=== PATIENT | male | born 1945 | race Caucasian/White ===

== ENCOUNTER → 2018-06-26 | Outpatient (CLI) | payer MEDICARE, BC ==
[2018-06-26 14:44] LABS: Alanine Aminotransfer (ALT/SGP 47 U/L (12-78); Albumin, Blood 3.5 g/dL (3.4-5.0); Alk Phos 71 U/L (50-136); Anion Gap 9 mmol/L (6-16); Aspartate Aminotrans (AST/SGOT 32 U/L (12-37); Bilirubin, Total 0.6 mg/dL (0.1-1.0); Blood Urea Nitrogen 22 mg/dL (8-24); Bun/Creatinine Ratio 20.4 (12.0-20.0); CO2, Blood 23 mmol/L (21-32); Calcium, Blood 8.2 mg/dL (8.5-10.1); Chloride, Blood 107 mmol/L (98-108); Creatinine, Blood 1.08 mg/dL (0.60-1.20); Globulin, Blood 3.6 g/dL (2.2-4.0); Glomerular Filtration Rate >60 (60-); Glucose, Blood 104 mg/dL (70-99); Potassium, Blood 4.1 mmol/L (3.5-5.5); Sodium, Blood 139 mmol/L (136-145); Total Protein, Blood 7.1 g/dL (6.4-8.2)
== END | disposition home or self-care (01) ==
LOC: LAB SHORT 13:55 → LAB 13:55
PROVIDERS: Internal Medicine Hematology & Oncology
DX: C43.59 Malignant melanoma of other part of trunk (principal)
CPT/HCPCS: 80053

== ENCOUNTER → 2018-07-05 | Outpatient (CLI) | payer MEDICARE, BC ==
[2018-07-05 18:28] LABS: Alanine Aminotransfer (ALT/SGP 31 U/L (12-78); Albumin, Blood 3.5 g/dL (3.4-5.0); Albumin/Globulin Ratio 1.1 (0.8-1.8); Alk Phos 66 U/L (50-136); Anion Gap 5 mmol/L (6-16); Aspartate Aminotrans (AST/SGOT 20 U/L (12-37); Bilirubin, Total 0.4 mg/dL (0.1-1.0); Blood Urea Nitrogen 14 mg/dL (8-24); Bun/Creatinine Ratio 13.9 (12.0-20.0); CO2, Blood 27 mmol/L (21-32); Chloride, Blood 107 mmol/L (98-108); Creatinine, Blood 1.01 mg/dL (0.60-1.20); Globulin, Blood 3.2 g/dL (2.2-4.0); Glomerular Filtration Rate >60 (60-); Glucose, Blood 103 mg/dL (70-99); Sodium, Blood 139 mmol/L (136-145); Total Protein, Blood 6.7 g/dL (6.4-8.2)
== END | disposition home or self-care (01) ==
LOC: LAB 10:00 → LAB SHORT 10:00
PROVIDERS: Internal Medicine Hematology & Oncology
DX: C43.59 Malignant melanoma of other part of trunk (principal)
CPT/HCPCS: 80053

== ENCOUNTER → 2018-08-14 | Outpatient (CLI) | payer MEDICARE, BC ==
[2018-08-14 12:48] LABS: Alanine Aminotransfer (ALT/SGP 32 U/L (12-78); Albumin, Blood 3.5 g/dL (3.4-5.0); Albumin/Globulin Ratio 1.2 (0.8-1.8); Alk Phos 73 U/L (50-136); Anion Gap 9 mmol/L (6-16); Aspartate Aminotrans (AST/SGOT 19 U/L (12-37); Bilirubin, Direct <0.1 mg/dL (0.0-0.3); Bilirubin, Indirect Unable to Calculate mg/dL (0.1-0.7); Bilirubin, Total 0.3 mg/dL (0.1-1.0); Blood Urea Nitrogen 14 mg/dL (8-24); Bun/Creatinine Ratio 16.7 (12.0-20.0); CO2, Blood 23 mmol/L (21-32); Chloride, Blood 109 mmol/L (98-108); Creatinine, Blood 0.84 mg/dL (0.60-1.20); Globulin, Blood 2.9 g/dL (2.2-4.0); Glomerular Filtration Rate >60 (60-); Glucose, Blood 86 mg/dL (70-99); Potassium, Blood 4.6 mmol/L (3.5-5.5); Sodium, Blood 141 mmol/L (136-145); Total Protein, Blood 6.4 g/dL (6.4-8.2)
== END | disposition home or self-care (01) ==
LOC: LAB 12:22 → LAB SHORT 12:22
PROVIDERS: Internal Medicine Hematology & Oncology
DX: C43.59 Malignant melanoma of other part of trunk (principal); I10 Essential (primary) hypertension
CPT/HCPCS: 80053; 82248

== ENCOUNTER 2018-08-27 09:01 | Emergency (ER) | payer MEDICARE, BC ==
[~2018-08-27] VITALS: Ht 177.8 cm; Wt 106.5 kg
[2018-08-27 11:33] LABS: BASOPHILS ABSOLUTE AUTO 0.04 K/mm3 (0.00-0.23); BASOPHILS PERCENT AUTO 0 % (0-2); EOSINOPHILS ABSOLUTE AUTO 0.23 K/mm3 (0.00-0.68); EOSINOPHILS PERCENT AUTO 2 % (0-6); Hematocrit 41.5 % (37.0-53.0); Hemoglobin 13.4 g/dL (13.5-17.5); IMMATURE GRAN ABSOLUTE AUTO 0.09 K/mm3 (0.00-0.10); IMMATURE GRAN PERCENT AUTO 1 % (0-1); LYMPHOCYTES ABSOLUTE AUTO 2.31 K/mm3 (0.84-5.20); LYMPHOCYTES PERCENT AUTO 17 % (21-46); MONOCYTES ABSOLUTE AUTO 1.12 K/mm3 (0.16-1.47); MONOCYTES PERCENT AUTO 8 % (4-13); Mean Corpuscular HGB 31.7 pg (26.0-34.0); Mean Corpuscular HGB Conc 32.3 g/dL (31.5-36.5); Mean Corpuscular Volume 98 fL (80-100); Mean Platelet Volume 9.6 fL (9.1-12.4); NEUTROPHILS ABSOLUTE AUTO 9.96 K/mm3 (1.96-9.15); NEUTROPHILS PERCENT AUTO 72 % (41-73); Platelet Count 281 K/mm3 (150-400); RDW Coefficient Variation 14.4 % (11.7-14.2); Red Blood Cell Count 4.23 M/mm3 (4.30-5.90); White Blood Cell Count 13.75 K/mm3 (4.00-11.30)
[2018-08-27 11:52] LABS: Alanine Aminotransfer (ALT/SGP 28 U/L (12-78); Albumin, Blood 3.5 g/dL (3.4-5.0); Albumin/Globulin Ratio 0.9 (0.8-1.8); Alk Phos 70 U/L (50-136); Anion Gap 7 mmol/L (6-16); Aspartate Aminotrans (AST/SGOT 17 U/L (12-37); Bilirubin, Total 0.4 mg/dL (0.1-1.0); Blood Urea Nitrogen 17 mg/dL (8-24); Bun/Creatinine Ratio 19.9 (12.0-20.0); CO2, Blood 24 mmol/L (21-32); Calcium, Blood 8.8 mg/dL (8.5-10.1); Chloride, Blood 108 mmol/L (98-108); Creatinine, Blood 0.86 mg/dL (0.60-1.20); Globulin, Blood 3.8 g/dL (2.2-4.0); Glomerular Filtration Rate >60 (60-); Glucose, Blood 104 mg/dL (70-99); Potassium, Blood 4.2 mmol/L (3.5-5.5); Sodium, Blood 139 mmol/L (136-145); Total Protein, Blood 7.3 g/dL (6.4-8.2)
[2018-08-27] MEDS ORDERED: LOSA25 PO (12:06)
[2018-08-27] MEDS ORDERED: ALBU90OI6 INH (12:06)
[2018-08-27] MEDS ORDERED: ONDA4 PO (13:21)
[2018-08-27] MEDS ORDERED: Norco 5-325 Ta1 EACH PO (13:22)
[2018-08-27] MEDS ORDERED: Excedrin Extra1 EACH PO (13:22)
== END 2018-08-27 15:58 | disposition short-term general hospital (02) ==
LOC: ER 09:01
PROVIDERS: Internal Medicine
DX: L03.213 Periorbital cellulitis (principal); C77.9 Secondary and unspecified malignant neoplasm of lymph node, unspecified; F17.210 Nicotine dependence, cigarettes, uncomplicated
CPT/HCPCS: 36415; 70481; 80053; 83605; 85025; 96365-59; 96366; 96367; 96375-59; 96376-59; 99285-25; A9270-GY; J0696; J1100; J1170; J2405; J3370; J7030; J7050; Q9967

== ENCOUNTER → 2018-10-16 | Outpatient (CLI) | payer MEDICARE, BC ==
[~2018-10-16] MED LIST: ALBU90OI6 INH; AMLO10 PO; ATORVASTATIN CA40 MG PO; DEXA4 PO; Excedrin Extra1 EACH PO; HYDR1TAB94 PO; KEYTRUDA100 MG/4 M IV; LOSA25 PO; Norco 5-325 Ta1 EACH PO; OMEP20ER PO; ONDA4 PO; SENN187 PO
[2018-10-16 17:40] LABS: BASOPHILS ABSOLUTE AUTO 0.05 K/mm3 (0.00-0.23); BASOPHILS PERCENT AUTO 0 % (0-2); EOSINOPHILS ABSOLUTE AUTO 0.37 K/mm3 (0.00-0.68); EOSINOPHILS PERCENT AUTO 3 % (0-6); Hematocrit 36.6 % (37.0-53.0); Hemoglobin 11.4 g/dL (13.5-17.5); IMMATURE GRAN ABSOLUTE AUTO 0.05 K/mm3 (0.00-0.10); IMMATURE GRAN PERCENT AUTO 0 % (0-1); LYMPHOCYTES ABSOLUTE AUTO 1.88 K/mm3 (0.84-5.20); LYMPHOCYTES PERCENT AUTO 17 % (21-46); MONOCYTES ABSOLUTE AUTO 0.88 K/mm3 (0.16-1.47); MONOCYTES PERCENT AUTO 8 % (4-13); Mean Corpuscular HGB 29.9 pg (26.0-34.0); Mean Corpuscular HGB Conc 31.1 g/dL (31.5-36.5); Mean Corpuscular Volume 96 fL (80-100); Mean Platelet Volume 9.5 fL (9.1-12.4); NEUTROPHILS ABSOLUTE AUTO 7.98 K/mm3 (1.96-9.15); NEUTROPHILS PERCENT AUTO 71 % (41-73); Platelet Count 350 K/mm3 (150-400); RDW Coefficient Variation 13.1 % (11.7-14.2); RDW Standard Deviation 46.4 fL (35.1-46.3); Red Blood Cell Count 3.81 M/mm3 (4.30-5.90); White Blood Cell Count 11.21 K/mm3 (4.00-11.30)
[2018-10-16 17:53] LABS: Alanine Aminotransfer (ALT/SGP 23 U/L (12-78); Albumin, Blood 3.4 g/dL (3.4-5.0); Alk Phos 65 U/L (50-136); Anion Gap 8 mmol/L (6-16); Aspartate Aminotrans (AST/SGOT 32 U/L (12-37); Bilirubin, Total 0.4 mg/dL (0.1-1.0); Blood Urea Nitrogen 14 mg/dL (8-24); CO2, Blood 27 mmol/L (21-32); Calcium, Blood 9.1 mg/dL (8.5-10.1); Chloride, Blood 104 mmol/L (98-108); Creatinine, Blood 0.93 mg/dL (0.60-1.20); Globulin, Blood 3.3 g/dL (2.2-4.0); Glomerular Filtration Rate >60 (60-); Glucose, Blood 103 mg/dL (70-99); Potassium, Blood 4.4 mmol/L (3.5-5.5); Sodium, Blood 139 mmol/L (136-145); Total Protein, Blood 6.7 g/dL (6.4-8.2)
== END | disposition home or self-care (01) ==
LOC: LAB 17:20 → LAB SHORT 17:20
PROVIDERS: Internal Medicine Hematology & Oncology
DX: C43.59 Malignant melanoma of other part of trunk (principal)
CPT/HCPCS: 80053; 85025

== ENCOUNTER 2018-11-23 05:47 | Day surgery (SDC) | payer MEDICARE, BC ==
[~2018-11-23] VITALS: Ht 178 cm; Wt 99.9 kg
[~2018-11-23 05:47] MED LIST changes: -ATORVASTATIN CA40 MG PO; -HYDR1TAB94 PO; -KEYTRUDA100 MG/4 M IV
--- NOTE | 2018-11-23 06:47 | NUR ---
Ambulatory in Day Surgery History, Chart, Medications and Allergies reviewed before start of procedure.Patient confirms NPO status and agrees with scheduled surgery. Patient reports completing Chlorhexadine shower X2 prior to admission to hospital.
--- NOTE | 2018-11-23 09:24 | NUR ---
PT AWAKE, CONVERSING WITH STAFF. TO BEDSIDE. NO C/O PAIN THOUGH STATES MILD DISCOMFORT IN RIGHT NECK AREA. NO SWELLING NOTED. NO BLEEDING NOTED.
--- NOTE | 2018-11-23 09:49 | NUR ---
SUMMARY: PT HAD UNCOMPLICATED POST OP COURSE. TOLERATING PO FLUIDS AND PUDDING WITHOUT DIFFICULTY. DRESSING REMAINED CDI, NO BLEEDING OR SWELLING NOTED TO SURROUNDING AREAS. PT DENIED DISCOMFORT/PAIN TO AREA. REVIEWED DISCHARGE INSTRUCTIONS WITH PATIENT AND - BOTH OF WHOM VERBALIZE UNDERSTANDING OF ALL. IV DC TIP INTACT. TO DRIVE PATIENT HOME. DC VIA WC.
== END 2018-11-23 23:06 | disposition home or self-care (01) ==
LOC: ORSCMMR 05:47 → ORD 07:30 → ORSCMMR 23:06
PROVIDERS: Surgery
PROC: 05HM33Z Insertion of Infusion Device into Right Internal Jugular Vein, Percutaneous Approach (ICD-10-PCS; principal; 2018-11-23 07:30)
PROC: B5131ZA Fluoroscopy of Right Jugular Veins using Low Osmolar Contrast, Guidance (ICD-10-PCS; principal; 2018-11-23 07:30)
DX: C43.59 Malignant melanoma of other part of trunk (principal); I10 Essential (primary) hypertension; Z79.899 Other long term (current) drug therapy
CPT/HCPCS: 77001; C1788; J0690; J1642; J2250; J2704; J3010; J7120

== ENCOUNTER 2018-12-07 11:23 | Emergency (ER) | payer MEDICARE, BC ==
[~2018-12-07] VITALS: Ht 177.8 cm; Wt 99.8 kg
[2018-12-07 12:02] LABS: BASOPHILS ABSOLUTE AUTO 0.04 K/mm3 (0.00-0.23); BASOPHILS PERCENT AUTO 0 % (0-2); EOSINOPHILS ABSOLUTE AUTO 0.02 K/mm3 (0.00-0.68); EOSINOPHILS PERCENT AUTO 0 % (0-6); Hemoglobin 11.5 g/dL (13.5-17.5); IMMATURE GRAN ABSOLUTE AUTO 0.31 K/mm3 (0.00-0.10); IMMATURE GRAN PERCENT AUTO 3 % (0-1); LYMPHOCYTES ABSOLUTE AUTO 2.32 K/mm3 (0.84-5.20); LYMPHOCYTES PERCENT AUTO 19 % (21-46); MONOCYTES ABSOLUTE AUTO 0.54 K/mm3 (0.16-1.47); MONOCYTES PERCENT AUTO 5 % (4-13); Mean Corpuscular HGB 30.1 pg (26.0-34.0); Mean Corpuscular HGB Conc 31.9 g/dL (31.5-36.5); Mean Corpuscular Volume 94 fL (80-100); Mean Platelet Volume 9.2 fL (9.1-12.4); NEUTROPHILS PERCENT AUTO 73 % (41-73); NRBC ABSOLUTE 0.02 K/mm3 (0.00-0.02); NRBC Auto 0.2 /100 WBC (0.0-0.2); Platelet Count 143 K/mm3 (150-400); RDW Coefficient Variation 16.9 % (11.7-14.2); RDW Standard Deviation 57.7 fL (35.1-46.3); Red Blood Cell Count 3.82 M/mm3 (4.30-5.90); White Blood Cell Count 12.03 K/mm3 (4.00-11.30)
[2018-12-07 12:33] LABS: Alanine Aminotransfer (ALT/SGP 28 U/L (12-78); Albumin, Blood 2.4 g/dL (3.4-5.0); Albumin/Globulin Ratio 0.6 (0.8-1.8); Alk Phos 75 U/L (50-136); Anion Gap 11 mmol/L (6-16); Aspartate Aminotrans (AST/SGOT 49 U/L (12-37); Bilirubin, Total 0.6 mg/dL (0.1-1.0); Blood Urea Nitrogen 19 mg/dL (8-24); Bun/Creatinine Ratio 27.5 (12.0-20.0); CO2, Blood 23 mmol/L (21-32); Calcium, Blood 7.8 mg/dL (8.5-10.1); Chloride, Blood 104 mmol/L (98-108); Creatinine, Blood 0.69 mg/dL (0.60-1.20); Globulin, Blood 3.9 g/dL (2.2-4.0); Glomerular Filtration Rate >60 (60-); Glucose, Blood 91 mg/dL (70-99); Potassium, Blood 4.1 mmol/L (3.5-5.5); Sodium, Blood 138 mmol/L (136-145); Total Protein, Blood 6.3 g/dL (6.4-8.2)
[2018-12-07 13:50] LABS: Source, Urine Clean Catch
[2018-12-07 13:57] LABS: Appearance, Urine Clear (Clear); Bilirubin, Urine Neg (Neg); Blood, Urine 1+ (Neg); Color, Urine Yellow (P-Yellow); Glucose Qualitative, Urine Neg (Neg); Ketones, Urine Neg (Neg); Leukocyte Esterase, Urine Neg (Neg); Nitrite, Urine Neg (Neg); Protein, Urine 2+ (Neg); Urobilinogen, Urine NORM (Normal)
[2018-12-07 14:09] LABS: Bacteria Rare /hpf; Red Blood Cells, Urine 0-2 /hpf (0-2); Squamous Epithelial Cells Rare /hpf (Few); White Blood Cells, Urine 0-2 /hpf (0-5)
[2018-12-07] MEDS ORDERED: ATORVASTATIN CA40 MG PO (14:17)
--- NOTE | 2018-12-07 16:33 | NUR ---
Met with patient and his . Pt has been seeing Dr Dominguez for treatment. pt has recieved chemotherapy and radiation is on Protocol with [facility] for injection therapy for meaningful remission. Pt is alsert able to track most of conversation has some difficulties with tracking conversation. He has been having mild headache. No ringing in ears or sorness to mouth. some balance issues and weakness but denies falls. He denies shortness of breath. He has had some mild nausea at time no constipation. He has general back pain. Patient to get CT scan Review of trajectory of disease with . They are newly but have been friends for many years and his first went through extending care for breast cancer. We discussed currative care, extended care and meaningful remission and hospice care. The patients has significant stress. They moved up here from [place] a year ago and are away from his children. They do not have any advance directives or POLST. They have a nurse navigator at [facility] to help with plan of care. Provided supportive care for . Offered out services for a resource. Provided advance directive as pt stated they really need to fill one out. They are discharging. reviewed forms and offered to make appointment to help fill them out. Reviewed signs and symptoms of increasing side effects or failure. Encouraged to ask physicians risks, benefits and prognosis with the treataments.
== END 2018-12-07 15:48 | disposition home or self-care (01) ==
LOC: ER 11:23
PROVIDERS: Emergency Medicine
DX: C71.9 Malignant neoplasm of brain, unspecified (principal); C79.2 Secondary malignant neoplasm of skin; G93.40 Encephalopathy, unspecified; R53.1 Weakness; I10 Essential (primary) hypertension; G89.29 Other chronic pain; M54.9 Dorsalgia, unspecified; Z79.899 Other long term (current) drug therapy; Z87.891 Personal history of nicotine dependence
CPT/HCPCS: 36415; 70450; 71046; 74177; 80053; 81001; 83605; 83690; 85025; 87040; 93005; 93010; 96361; 96374-59; 99285-25; J0456; J0696; J1100; J7030; J7050; Q9967

== ENCOUNTER 2018-12-19 21:32 | Inpatient (IN) | payer MEDICARE, BC ==
[~2018-12-19] VITALS: Ht 177.8 cm; Wt 101.7 kg
[~2018-12-19 21:32] MED LIST changes: +ATORVASTATIN CA40 MG PO
[2018-12-19] MEDS ORDERED: HYDR1TAB94 PO (21:57)
[2018-12-19] MEDS ORDERED: DEXA4 PO (21:57)
[2018-12-19] MEDS ORDERED: KEYTRUDA100 MG/4 M IV (21:58)
[2018-12-19 22:10] LABS: BASOPHILS ABSOLUTE AUTO 0.08 K/mm3 (0.00-0.23); BASOPHILS PERCENT AUTO 0 % (0-2); EOSINOPHILS PERCENT AUTO 0 % (0-6); Hematocrit 34.9 % (37.0-53.0); IMMATURE GRAN ABSOLUTE AUTO 1.61 K/mm3 (0.00-0.10); IMMATURE GRAN PERCENT AUTO 8 % (0-1); LYMPHOCYTES ABSOLUTE AUTO 2.85 K/mm3 (0.84-5.20); LYMPHOCYTES PERCENT AUTO 15 % (21-46); MONOCYTES ABSOLUTE AUTO 0.99 K/mm3 (0.16-1.47); MONOCYTES PERCENT AUTO 5 % (4-13); Mean Corpuscular HGB 29.7 pg (26.0-34.0); Mean Corpuscular HGB Conc 31.5 g/dL (31.5-36.5); Mean Corpuscular Volume 94 fL (80-100); Mean Platelet Volume 9.8 fL (9.1-12.4); NEUTROPHILS ABSOLUTE AUTO 13.56 K/mm3 (1.96-9.15); NEUTROPHILS PERCENT AUTO 71 % (41-73); NRBC ABSOLUTE 0.28 K/mm3 (0.00-0.02); NRBC Auto 1.5 /100 WBC (0.0-0.2); Platelet Count 115 K/mm3 (150-400); RDW Coefficient Variation 17.4 % (11.7-14.2); White Blood Cell Count 19.09 K/mm3 (4.00-11.30)
[2018-12-19 22:29] LABS: Alanine Aminotransfer (ALT/SGP 42 U/L (12-78); Albumin, Blood 2.6 g/dL (3.4-5.0); Albumin/Globulin Ratio 0.7 (0.8-1.8); Alk Phos 73 U/L (50-136); Anion Gap 9 mmol/L (6-16); Aspartate Aminotrans (AST/SGOT 70 U/L (12-37); BAND PERCENT MAN 2 % (0-8); BASOPHILS PERCENT MAN 0 % (0-2); Bilirubin, Total 0.5 mg/dL (0.1-1.0); Blood Urea Nitrogen 32 mg/dL (8-24); Bun/Creatinine Ratio 36.7 (12.0-20.0); CO2, Blood 24 mmol/L (21-32); Calcium, Blood 8.2 mg/dL (8.5-10.1); Chloride, Blood 106 mmol/L (98-108); Creatinine, Blood 0.87 mg/dL (0.60-1.20); EOSINOPHILS PERCENT MAN 0 % (0-6); Globulin, Blood 3.5 g/dL (2.2-4.0); Glomerular Filtration Rate >60 (60-); Glucose, Blood 134 mg/dL (70-99); LYMPHOCYTES ABSOLUTE MAN 3.81 K/mm3 (0.84-5.20); LYMPHOCYTES PERCENT MAN 20 % (21-46); METAMYELOCYTE ABSOLUTE MAN 0.38 K/mm3 (0.00-0.00); METAMYELOCYTE PERCENT MAN 2 % (0-0); MONOCYTES ABSOLUTE MAN 0.38 K/mm3 (0.16-1.47); MONOCYTES PERCENT MAN 2 % (4-13); Potassium, Blood 4.6 mmol/L (3.5-5.5); SEG NEUTROPHILS PERCENT MAN 74 % (41-73); Sodium, Blood 139 mmol/L (136-145); TOTAL CELLS COUNTED 100; Total Protein, Blood 6.1 g/dL (6.4-8.2)
[2018-12-19 23:00] LABS: Source, Urine Clean Catch
[2018-12-19 23:07] LABS: Appearance, Urine Clear (Clear); Bilirubin, Urine 1+ (Neg); Blood, Urine 1+ (Neg); Color, Urine Amber (P-Yellow); Glucose Qualitative, Urine Neg (Neg); Ketones, Urine 1+ (Neg); Leukocyte Esterase, Urine 1+ (Neg); Nitrite, Urine Neg (Neg); Protein, Urine 2+ (Neg); Urobilinogen, Urine 1+ (Normal)
[2018-12-19 23:13] LABS: Amorphous Light (0-Heavy); Bacteria Mod /hpf; Mucus Light (0-Heavy); Red Blood Cells, Urine 0-2 /hpf (0-2); Squamous Epithelial Cells Not Seen /hpf (Few)
[2018-12-20 05:04] LABS: BASOPHILS ABSOLUTE AUTO 0.03 K/mm3 (0.00-0.23); BASOPHILS PERCENT AUTO 0 % (0-2); EOSINOPHILS PERCENT AUTO 0 % (0-6); Hemoglobin 9.5 g/dL (13.5-17.5); IMMATURE GRAN PERCENT AUTO 5 % (0-1); LYMPHOCYTES ABSOLUTE AUTO 1.95 K/mm3 (0.84-5.20); LYMPHOCYTES PERCENT AUTO 13 % (21-46); MONOCYTES ABSOLUTE AUTO 0.64 K/mm3 (0.16-1.47); MONOCYTES PERCENT AUTO 4 % (4-13); Mean Corpuscular HGB 29.6 pg (26.0-34.0); Mean Corpuscular HGB Conc 31.7 g/dL (31.5-36.5); Mean Corpuscular Volume 94 fL (80-100); Mean Platelet Volume 10.2 fL (9.1-12.4); NEUTROPHILS ABSOLUTE AUTO 11.97 K/mm3 (1.96-9.15); NEUTROPHILS PERCENT AUTO 78 % (41-73); NRBC ABSOLUTE 0.09 K/mm3 (0.00-0.02); NRBC Auto 0.6 /100 WBC (0.0-0.2); Platelet Count 95 K/mm3 (150-400); RDW Coefficient Variation 17.7 % (11.7-14.2); RDW Standard Deviation 59.6 fL (35.1-46.3); Red Blood Cell Count 3.21 M/mm3 (4.30-5.90); White Blood Cell Count 15.39 K/mm3 (4.00-11.30)
[2018-12-20 05:20] LABS: Anion Gap 8 mmol/L (6-16); Blood Urea Nitrogen 29 mg/dL (8-24); Bun/Creatinine Ratio 36.6 (12.0-20.0); CO2, Blood 25 mmol/L (21-32); Calcium, Blood 7.6 mg/dL (8.5-10.1); Chloride, Blood 106 mmol/L (98-108); Creatinine, Blood 0.79 mg/dL (0.60-1.20); Glomerular Filtration Rate >60 (60-); Glucose, Blood 118 mg/dL (70-99); Potassium, Blood 4.8 mmol/L (3.5-5.5); Sodium, Blood 139 mmol/L (136-145)
[2018-12-20 05:32] LABS: BAND PERCENT MAN 7 % (0-8); BASOPHILS PERCENT MAN 0 % (0-2); EOSINOPHILS ABSOLUTE MAN 0.15 K/mm3 (0.00-0.68); EOSINOPHILS PERCENT MAN 1 % (0-6); LYMPHOCYTES ABSOLUTE MAN 1.53 K/mm3 (0.84-5.20); LYMPHOCYTES PERCENT MAN 10 % (21-46); METAMYELOCYTE ABSOLUTE MAN 0.46 K/mm3 (0.00-0.00); METAMYELOCYTE PERCENT MAN 3 % (0-0); MONOCYTES ABSOLUTE MAN 0.61 K/mm3 (0.16-1.47); MONOCYTES PERCENT MAN 4 % (4-13); NEUTROPHILS ABSOLUTE MAN 12.61 K/mm3 (1.96-9.15); SEG NEUTROPHILS PERCENT MAN 75 % (41-73); TOTAL CELLS COUNTED 100
--- NOTE | 2018-12-20 07:52 | NUR ---
12/20/18 0625 PT YELLING IN EXTREME PAIN ON LEFT SIDE OF ABDOMEN. BED ALARM SOUNDING HE WAS TRYING TO GET OUT OF BED. "I HAVE TO MOVE!" PT DIAPHORETIC. LEGS NOTED TO BECOME MOTTLED AT THIS TIME. LEGS WERE NOT MOTTLED PRIOR ON FLOOR ASSESSMENT. PT CONTINUES TO WANT TO BE IN BED AND THEN UP IN CHAIR WITH ACTIVITY NOT RELIEVING THE PAIN. PAIN LEVEL AT "10". DR BLAIR CALLED TO INFORM HER OF ABOVE BY PAIL TESTER,BENNY. NEW ORDER FOR ANOTHER DILAUDID 1 MG IV BUT OLD IV SITE INFILTRATED. BOTH CHARGE AND PRIMARY RN ATTEMPTING NEW IV. AFTER NEW IV STARTED THE PT WAS GIVEN PAIN MED. BLADDER SCAN DONE HE ONLY VOIDED AROUND 420 ML THIS SHIFT. BLADDER SCAN = 41 ML. PT FINALLY SLEEPING AND REPORT GIVEN TO CHRIS ENCISO RN, DAY SHIFT.
--- NOTE | 2018-12-20 09:14 | NUR ---
HIS IS AT THE BEDSIDE. HE HAS BEEN MEDICATED WITH DILAUDID FOR SEVERE ABD PAIN. HE HAS SOME PURPLE MOTTLING ON HIS LEGS NOTED AT SHIFT CHANGE. NOW I SEE MOTTLING AN HIS ABD WALL ALSO. HIS THINKS THAT IS DIFFERENT. HE IS RESTLESS, NEEDING TO SIT UP OR STAND UP RATHER THAN LAY IN THE BED. I SPOKE WITH DR. MADRID ABOUT HIM. HE JUST ROUNDED ON PAT. COMFORT MEASURES DISCUSSED. TEARFUL BUT UNDERSTANDS THE SITUATION.
--- NOTE | 2018-12-20 10:00 | NUR ---
INITIAL PAL CARE VISIT WITH COMFORT CARE ORDERS RECEIVED MINUTES AGO. PT IS YELLING OUT IN PAIN AND TRYING TO CHANGE POSITION FREQUENTLY FOR COMFORT. ASSISTED HIM TO SITTING AT SIDE OF BED. INTRODUCED MYSELF AND TOLD HIM OUR ONLY GOAL FOR TODAY WAS TO GET HIS PAIN CONTROLLED. CASE CONFERENCED WITH RN ON CURRENT MEDICATIONS AND MADE RECOMMENDATIONS, WHICH WERE CARRIED OUT IMMEDIATELY. BRAD, RN AND I CONTINUED TO WORK ON MANAGING PT'S PAIN. FAN BROUGHT TO ROOM PT FELT IT WOULD BE HELPFUL. COOL CLOTH TO WARM FOREHEAD. MANY CHANGES IN POSITION ATTEMPTED. BED CHANGED AND PT REPOSITIONED AGIAN AFTER IT BECAME WET WTIH A LARGE AMOUNT OF WATER FROM THE KPAD. PT DENIES NAUSEA. HIS PAIN APPEARS VERY SPASMOTIC AND GRABBING. HE IS HOLDING HIS ABDOMEN AND BOLTS UPRIGHT WHEN PAIN TAKES HOLD. HE IS BEGGING FOR HELP. AFTER ROXANOL AND ATIVAN GIVEN SOME RELIEF NOTED FOR BRIEF PERIODS BUT PT CONTINUED TO CRY OUT IN PAIN PERIODICALLY. WILL RETURN TO PT'S ROOM AND REASSESS IN 30 MINUTES.
--- NOTE | 2018-12-20 11:16 | NUR ---
HE HAS COMFORT CARE ORDERS NOW. THE PALLIATIVE NURSE AND I HAVE BEEN TRYING TO GET HIS PAIN UNDER CONTROL. HE IS CURRENTLY SNORING. HE WAS DROWSY BUT VERY RESTLESS. THEN HE WOULD SLEEP BUT YELL OUT IN HIS SLEEP. HE LOOKS MORE COMFORTABLE NOW. HIS JUST SMILED AT ME WHEN I PEEKED IN TO CHECK ON HIM. THE SHALLOT PACKER CRISTOBAL JUST LEFT THE ROOM ALSO. MIMI IS THEIR PALLIATIVE CARE NURSE TODAY. HE HAS HAD 1 DOSE OF ROXANOL AND ATIVAN SO FAR AND THE FENTANYL PATCH HAS BEEN APPLIED. A 2MG DOSE OF DILAUDID WAS ALSO STARTED.
--- NOTE | 2018-12-20 11:24 | NUR ---
Upon receiving an admit referra, I visited patient. I could hear patient yelling down the hallway as I approached patient's room. When I entered room Patient's RN and others were working hard to manage patient's pain. The pain seemed to come in waves and patient would yell out and moan. I sat and talked with patient's spouse of a year and a half, Dulce. I provided a calming presence for her and patient. At times Dulce and the staff were working with patient on breathing techniques and pain management medications, at other times Dulce would sit in the corner of the room and weep. As I helped distract her with telling her story, the story of how they met, the story of how the cancer started until present etc. became more relaxed.Dulce Dulce showed signs of reduced stress and at the same time the medications helped patient to yell less frequently. When I left the room things were peaceful and Dulce is able to contact the grown children and inform them that their father has been placed on comfort care.
--- NOTE | 2018-12-20 11:30 | NUR ---
SECOND PAL CARE VISIT THIS AM. PT IS SLEEPING/SNORING INTERMITTENTLY WITH CRYING OUT IN PAIN AND TRYING TO CHANGE POSITION. T/C TO DR TO REQUEST DURAGESIC PATCH AND INCREASE IN ANALGESICS UNTIL PAIN IS WELL MANAGED. REMAINS AT BEDSIDE ASSISTING PT AND STAFF. PLASTERER FOREMAN PRESENT WELL RN AND LEVERMAN, WHO HAVE BEEN IN ROOM WITH US T/O AM TRYING TO GET PT MORE COMFORTABLE. NEW RXS ORDERED AND ENTERED BY . I EXPLAINED ALL MEDICATIONS AND WHAT TO EXPECT TO PT'S , LORI. ASSURED HER WE WOULD NOT BE TALKING ABOUT D/C PLANNING UNTIL WE HAD PT'S PAIN AND S/S UNDER CONTROL. UPDATED CHERYL FISHMAN ON PT STATUS AND PAIN CONTROL CHALLENGE THIS AM. DUE TO PT'S OUT OF CONTROL PAIN, I HAVE NOT ATTEMPTED TO HAVE ANY CONVERSATIONS WITH PT/ ABOUT THEIR WISHES FOR ADVANCED CARE PLANNING. WHEN PT IS NOT IN OUT OF CONTROL PAIN I WILL PURSUE THAT. RN APPLIED DURAGESIC PATCH AND GAVE ADDITIONAL DILAUDID PER eMAR/ORDERS. PLASTERER FOREMAN REMAINED IN THE ROOM AFTER I LEFT. PLAN TO REASSESS THIS AFTERNOON. IS TEARFUL, CALM, ACCEPTING OF INTERVENTIONS AND INTERACTIONS. WILL REQUEST MUSIC THERAPY FOR PT ALSO.
--- NOTE | 2018-12-20 12:00 | NUR ---
HE IS SNORING LOUDLY. RESPIRATIONS ARE REGULAR AT ABOUT 20/MIN. HE IS NOT WRITHING IN PAIN LIKE EARLIER TODAY. HIS IS TALKING ON HER PHONE. SHE ASKED ME TO CALL 'S OFFICE EARLIER TO LEAVE A MSG ABOUT INITIATING COMFORT CARE TODAY. THE OFFICE HAS SINCE CALLED HER.
--- NOTE | 2018-12-20 13:00 | NUR ---
HE IS SNORING, BUT YELLS OUT IN HIS SLEEP. HE HAS APNEIC PERIODS OF SEVERAL SECONDS. HIS SAYS HE PROBABLY HAS HAD SLEEP APNEA AT HOME BUT HASN'T BEEN NOTICING IT LATELY LIKE SHE USED TO. ROXANOL WAS THE LAST MEDICATION GIVEN. WILL CONTINUE TO TRY TO KEEP HIM COMFORTABLE.
--- NOTE | 2018-12-20 14:02 | NUR ---
HIS STILL AT BEDSIDE. HE HAS BEEN MEDICATED AGAIN WITH DILAUDID 1 MG AND ATIVAN 1 MG IN THE PAST 1/2 HOUR. HE HAS BEEN REPOSITIONED. NO VOID FOR PAST FEW HRS. WILL MONITOR.
--- NOTE | 2018-12-20 17:31 | NUR ---
1600 NOTE HE IS SLEEPING WITH REGULAR RESPIRATIONS. HE LOOKS COMFORTABLE. HIS IS LEAVING FOR A LITTLE WHILE. BED ALARM ON.
--- NOTE | 2018-12-20 17:58 | NUR ---
THIRD PAL CARE/COMFORT CARE VISIT TODAY TO REASSESS FOR COMFORT. PT IS SLEEPING. LOUD OPEN MOUTH BREATHING/SNORING, RESPIRATIONS ARE EVEN & UNLABORED CURRENTLY. HAS LEFT FOR SHORT WHILE TO GET SOME FRESH AIR. DISCUSSED PLAN OF CARE WITH PT'S RN. I DID NOT DISTURB PT. THIS IS THE MOST COMFORTABLE I HAVE SEEN HIM TODAY. I DID NOT NOTE NONVERBAL INDICATORS OF PAIN WHILE SLEEPING AT THIS TIME. REPORT GIVEN TO PALLIATIVE CARE RN WHO WILL BE FOLLOWING HIM TOMORROW. REPORT GIVEN EARLIER TO CANDY ROLLING MACHINE OPERATOR ON CURRENT STATUS AND DIFFICULTY WITH S/S CONTROL FOR FIRST PART OF DAY.
--- NOTE | 2018-12-20 18:18 | NUR ---
RESTING COMFORTABLY IN BED. HE HAS RECENTLY BEEN MEDICATED WITH IV DILAUDID. SEE EMAR FOR ALL COMFORT MEDICATIONS GIVEN THIS SHIFT. HE HAS NOT VOIDED SINCE ABOUT 9AM. WILL BLADDER SCAN HIM. IVF'S WERE STOPPED THIS AM. DOCTOR WANTS ANTIBIOTIC CONTINUED FOR A SHORT TIME UNLESS PATIENT AND FAMILY DON'T WANT IT. PATIENT HAS A DECREASED LOC AND WAS NOT HERE TO ASK. RESPIRATIONS ARE REGULAR MOST OF THE TIME, THOUGH HE DID SHOW SOME SLEEP APNEA EARLIER TODAY.
--- NOTE | 2018-12-20 18:27 | NUR ---
CHARGE NURSE HAS BEEN COMMUNICATING WITH [facility] AND THE [facility]. ICE HAS BEEN PLACE ON HER EYES. [facility] WILL PICK HER UP.
--- NOTE | 2018-12-20 21:57 | NUR ---
PT MOVED TO ROOM 308 FOR FAMILY CONVIENCE (LARGER ROOM) WITH ALL PERSONAL BELONGINGS, SPOUSE AT SIDE.
--- NOTE | 2018-12-21 04:46 | NUR ---
SHIFT SUMMARY: 73 Y/O MALE HAD RESTLESS SHIFT WITH OCCASIONAL SCREAMING AND HOLDING ABDOMINAL REGION WITH DILAUDID 1MG AND ATIVAN 2MG IVP GIVEN X 3 WITH RELIEF FELT, RESTING IN SEMI FOLWERS POSITION AND REPOSITIONED BY STAFF Q2H, DAUGHTER AND SISTER SPENT NIGHT AND VERY SUPPORTIVE, NON RESPONSIVE WITH PINPOINT PUPILS, NO ORAL INTAKE OR VOID NOTED ENTIRE SHIFT (ALL MEDICATIONS HELD), COMFORT CARE PATIENT, BED ALARM APPLIED, BED LOW POSITION, CALL LIGHT AT SIDE.
--- NOTE | 2018-12-21 08:00 | NUR ---
HE IS SLEEPING COMFORTABLY. HIS BREATHING CHANGED WHEN I INSERTED THE CATHETER BUT HE DID NOT WAKE UP. HE TOLERATED IT WELL. URINE OUTPUT IS CONCENTRATED JIMMY. FAMILY HAS BEEN OUT OF THE ROOM FOR THE PAST HOUR OR SO. RE-STOCKING THE COMFORT CART.
--- NOTE | 2018-12-21 10:33 | NUR ---
1000 NOTE HE RMAINS MOSTLY UNRESPONSIVE. HE FLUTTERS HIS EYE LIDS SOMETIMES WHEN I CALL HIS NAME OR WE MOVE HIM. HIS FAMILY FEELS HE IS MOSTLY COMFORTABLE. THEY WANT US TO KEEP MEDICATING HIM REGULARLY TO KEEP HIM COMFORTABLE.
--- NOTE | 2018-12-21 12:41 | NUR ---
1200 NOTE HE IS RESTING COMFORTABLY. HIS IS AT THE BEDSIDE. VERY LITTLE U.O. SINCE HIS BLADDER DRAINED WHEN CATHETER WAS PLACED THIS AM. MOTTLING NOTED AT HIS KNEES. HE CONTINUES TO DIAPHORESE. RESPIRATIONS REGULAR.
--- NOTE | 2018-12-21 14:32 | NUR ---
1400 NOTE RESTLESS AND YELLING OUT DURING AND AFTER HIS BEDBATH WITH LINEN CHANGE. DILAUDID GIVEN BEFORE BATH. ROXANOL GIVEN AT END OF BATH. ATIVAN GIVEN AFTER THAT. HE IS QUIET AND RELAXED AGAIN. CHAPLAIN JAIN HAS ALSO BEEN VISITING HIS AT THE BEDSIDE.
--- NOTE | 2018-12-21 14:44 | NUR ---
Patient is moaning off and on and snoring in between moans. Dulce is bedside and tells me more about the family dynamics and who is on the way to [place]. She talks about what she thinks might happen in the days/weeks to come. She mentions that her daughter is coming and will stay with her through January. I listen empathically, provide a calming presence and emotional suport. Dulce thanks me for the visit.
--- NOTE | 2018-12-21 18:06 | NUR ---
1600 NOTE HE HAS RECEIVED DILAUDID, ATROPINE AND SCOPALOMINE PATCH. ORAL SUCTION DONE FOR SMALL AMT OF SECRETIONS. 3 FAMILY MEMBERS AT BEDSIDE. HE IS UNRESPONSIVE WITH RESP DOWN FROM 28/MIN TO 20/MIN. WILL CONTINUE TO TRY TO MAKE HIM COMFORTABLE.
--- NOTE | 2018-12-21 18:10 | NUR ---
HE AT 1740 WITH FAMILY, MYSELF AND COUNTER WAITER PRESENT. HE WAS WITHOUT PULSE OR RESPIRATIONS. HIS FAMILY IS VERY TEARFUL AND SUPPORTIVE OF EACH OTHER.
--- NOTE | 2018-12-21 18:13 | NUR ---
Spiritual Care end-of-life visit: Called by Palliative Care RN to be with family as pt very near . Hysterical family at bedside. Provided calm presence, phone counselor, facilitation of expressions of gratitude. [place]xto peacefully thanks to excellent nursing care. Gentle bereavement phone counselor given to good effect. Family calmed considerably by end of visit. Non-orthodoxy, but responded well to calm direction/guidence. Spouse has selected [facility] for arrangements.
--- NOTE | 2018-12-21 18:34 | NUR ---
FAMILY HAS GONE HOME. MAYO AMBROSE'Tete. BODY SUPINE. WILL READY HIM TO BE PICKED UP BY [facility].
--- NOTE | 2018-12-21 21:54 | NUR ---
2049 PTS BODY RELEASED TO [facility], PICKED UP BY ISA STEPHENSON, FAMILY TOOK ALL PERSONAL BELONGINGS HOME PRIOR.
== END 2018-12-21 17:40 | DRG 872 ==
LOC: ER 21:32 → MEDS 12-20 00:50
PROVIDERS: Emergency Medicine; ADMIT Family Medicine
DX: A41.9 Sepsis, unspecified organism (principal); C79.31 Secondary malignant neoplasm of brain; E87.2 Acidosis; C79.89 Secondary malignant neoplasm of other specified sites; N39.0 Urinary tract infection, site not specified; R65.20 Severe sepsis without septic shock; M54.9 Dorsalgia, unspecified; E78.5 Hyperlipidemia, unspecified; K21.9 Gastro-esophageal reflux disease without esophagitis; I10 Essential (primary) hypertension; D69.6 Thrombocytopenia, unspecified; C43.9 Malignant melanoma of skin, unspecified; Z51.5 Encounter for palliative care
CPT/HCPCS: 36415; 74176; 80048; 80053; 81001; 83605; 83690; 83735; 85025; 87040; 87086; 93005; 93010; 96361; 96365; 96375; 96376; 99285-25; A9270-GY; J0696; J1170; J1650; J2060; J2405; J7030; J7120